=== PATIENT | female | born 1985 | race Two or more races ===

== ENCOUNTER 2023-05-17 15:04 | Emergency (ER) | payer MEDICAID, OTHER ==
[~2023-05-17] VITALS: Ht 162.6 cm; Wt 82.3 kg
[2023-05-17 15:07] VITALS: BP 132/98; PULSE 97; RESP 18; TEMP 97.3; O2SAT 98
[2023-05-17] MEDS ORDERED: KETOROLAC TROMETH 60MG/2ML VIAL IM ONE (20:00)
[2023-05-17] MEDS ORDERED: CYCL-837 PO (20:02)
[2023-05-17] MEDS ORDERED: IBUP-1456 PO (20:02)
== END 2023-05-17 20:57 | disposition home or self-care (01) ==
LOC: ER 15:04
DX: S39.012A Strain of muscle, fascia and tendon of lower back, initial encounter (principal); Z98.890 Other specified postprocedural states; Z79.1 Long term (current) use of non-steroidal anti-inflammatories (NSAID); Z79.899 Other long term (current) drug therapy; X50.1XXA Overexertion from prolonged static or awkward postures, initial encounter; Y93.89 Activity, other specified; Y92.89 Other specified places as the place of occurrence of the external cause; Y99.8 Other external cause status
CPT/HCPCS: 96372; 99283; J1885